=== PATIENT | female | born 2005 | race Caucasian/White ===

== ENCOUNTER 2025-09-05 21:15 | Emergency (ER) | payer BC, SELFPAY ==
[2025-09-05 21:21] VITALS: BP 116/77; PULSE 96; RESP 16; TEMP 36.8; O2SAT 97; BMI 22.3
--- OUTSIDE RECORDS SUMMARY | 2025-09-05 21:26 | XMS_ITS | Clinical Summary ---
Author Organization [facility] Address [address] Attn: [place] [address] Care Team Providers Care Home Therapy Teacher Name Role Phone Brea Marshall MD Primary Care Provider Unav ailable Allergies Active Allergy Reactions Criticality Noted Date Comments Canine Protein Containing Products Cough Low 0 02/15/2008 Cat Hair Extract Cough Low 02/15/2008 Medications fluconazole (DIFLUCAN) 200 mg tablet Take 1 Tablet (200 mg) by mouth daily. 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 02/23/2025 Sore throat 02/23/2025 Vaginal discharge 02/23/2025 Vaginal odor 10/26/2024 Bacterial vaginosis 10/26/2024 Exposure to STD 08/05/2024 Encounters Date Type Department Care Team Description 08/26/2025 External Device Data [facility]STRA[facility] Provider, Abstract 08/19/2025 External Device Data [facility] Provider, Abstract 08/12/2025 External Device Data [facility] Provider, Abstract 07/23/2025 11:00 AM CDT - 07/23/2025 11:59 PM CDT [facility] [address] [place] [address] Abigail Alfonso PA Discharge Disposition: Home or Self Care 07/15/2025 External Device Data [facility] ABSTRACTION Provider, Abstract 07/15/2025 External Device Data [facility] Provider, Abstract 07/15/2025 External Device Data [facility] Provider, Abstract 07/14/2025 11:30 AM CDT - 07/14/2025 11:59 PM CDT Hospital Encounter [facility] [address] [place] [address] Abigail Alfonso PA Discharge Disposition: Home or Self Care 07/07/2025 10:00 AM CDT - 07/07/2025 11:59 PM CDT Hospital Encounter [facility] [address] [place] [address] Abigail Alfonso PA Discharge Disposition: Home or Self Care 07/02/2025 11:30 AM CDT - 07/02/2025 11:59 PM CDT Hospital Encounter [facility] [address] [place] [address] Abigail Alfonso PA Discharge Disposition: Home or Self Care 06/23/2025 11:30 AM CDT - 06/23/2025 11:59 PM CDT Hospital Encounter [facility] [address] [place] [address] Abigail Alfonso PA Discharge Disposition: Home or Self Care 06/19/2025 10:00 AM CDT - 06/19/2025 11:59 PM CDT Hospital Encounter [facility] [address] [place] [address] Abigail Alfonso PA Discharge Disposition: Home or Self Care 06/17/2025 10:15 AM CDT Office Visit [facility] [address] [place] [address] Alexandre Roche III, MD Left knee pain, unspecified chronicity (Primary Dx); Knee instability, left 06/17/2025 External Device Data [facility] ABSTRACTION Provider, Abstract 06/17/2025 External Device Data [facility] Provider, Abstract 06/17/2025 External Device Data [facility] Provider, Abstract 06/12/[address] [facility] [address] [place] [address] Abigail Alfonso PA Question 06/11/2025 10:00 AM CDT - 06/11/2025 11:59 PM CDT Hospital Encounter [facility] [address] [place] [address] Abigail Alfonso PA Discharge Disposition: Home or Self Care 06/09/2025 10:00 AM CDT - 06/09/2025 11:59 PM CDT Hospital Encounter [facility] [address] [place] [address] Abigail Alfonso PA Discharge Disposition: Home or Self Care 06/05/2025 10:30 AM CDT - 06/05/2025 11:59 PM CDT Hospital Encounter [facility] [address] [place] [address] Abigail Alfonso PA Discharge Disposition: Home or Self Care from Last 3 Months Immunizations Immunization Administration Dates Next Due (M-M-R II/PRIORIX)(12 MO UP) MEASLES, MUMPS AND RUBELLA VIRUS VACCINE, 0.5 ML IM/SUBCUT 07/01/2005 (VARIVAX)(12 MOS UP)VARICELL A VIRUS VACCINE (PF) 0.5 ML, SUB CUT 02/14/2006 DTaP IPV Vaccine 4-6 Yr IM VFC 02/27/2009 Dt Dtp Dtap Vaccine 07/01/2005, 4,2004,2003 HIB, Unspecified Formulation 07/01/2005, 2004,2004,2003 Hepatitis A Vaccine 02/12/2007,02/14/2006 Hepatitis B Vaccine 2004, 4,2004,2003 IPV/OPV 2004,2004,2004 MMR Vaccine SQ VFC 02/27/2009 Pneumococcal 7-valent conjug ate vaccine IM 07/01/2005,2004,2004,2003 Varicella Vaccine Live Sq VF 02/27/2009 Family History Medical History Relation Name Comments Healthy Father DON DINH Healthy Mother MARVA Relation Name Status Comments Father DON DINH Alive Mother MARVA Alive Social History Tobacco Use Types Packs/Day Years Used Date Smoking Tobacco: Never Smokeless Tobacco: Never Tobacco Cessation:Counseling Given: Not Answered Feeling Safe Answer Date Recorded Are you in a relationship wi th someone who hurts you emotionally and/or physically? 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 Gender Identity Not on file Sexual Orientation Not on file Last Filed Vital Signs Vital Sign Reading Time Taken Comments Blood Pressure 118/76 06/17/2025 10:45 AM CDT Pulse 118 05/18/2025 4:00 PM CDT Temperature 37.3 C (99.1 F) 05/18/2025 3:42 PM CDT Respiratory Rate 18 05/18/2025 3:42 PM CDT Oxygen Saturation 97% 05/18/2025 3:42 PM CDT Inhaled Oxygen Concentration - - Weight 60.3 kg (133 lb) 06/17/2025 10:45 AM CDT Height 162.6 cm (5' 4 ) 06/17/2025 10:45 AM CDT Body Mass Index 22.83 06/17/2025 10:45 AM CDT Plan of Treatment Health Maintenance Due Date Last Done Comments DTAP/TDAP/TD VACCINES (6 - Tdap) 02/09/2015 02/27/2009, 07/01/2005, 2004, Additional history exists HPV VACCINES (1 - 3-dose series) 02/09/2019 CERVICAL CANCER SCREENING 02/09/2025 HPV/Cotest (21-29) 02/09/2025 PAP SMEAR 02/09/2025 INFLUENZA VACCINE (#1) 2025 CHLAMYDIA SCREENING (ANNUAL) 11-24 YEARS 02/23/2026 02/23/2025, 10/26/2024, 08/02/2024 HEPATITIS B VACCINES Completed 2004, 2004, 2004, Additional history exists Procedures Procedure Name Priority Date/Time Associated Diagnosis Comments VAGINOSIS/VAGINITIS PANEL PLUS Stat 02/23/2025 12:58 PM CDT Vaginal discharge from Last 3 Months or Most Recently Relevant to Health Maintenance Results * VAGINOSIS/VAGINITIS PANEL PLUS (02/23/2025 12:58 PM CDT) BACTERIAL VAGINOSIS NEGATIVE NEGATIVE [facility] NURIA SPECIES NOT DETECTED NOT DETECTED [facility] NURIA GLABRATA NOT DETECTED NOT DETECTED [facility] Comment: Nuria species C. albicans, C. tropicalis, C. parapsilosis, and/or C. dubliniensis can be detected, but not differentiated, in the Nuria spp. result. TRICHOMONAS VAGINALIS (TV), TMA NOT DETECTED NOT DETECTED [facility] CHLAMYDIA TRACHOMATIS RNA, TMA, UROGENITAL NOT DETECTED NOT DETECTED [facility] NEISSERIA GONORRHOEAE RNA, TMA, UROGENITAL NOT DETECTED NOT DETECTED [facility] Comment: For additional information, please refer to https://education.MindEdge/faq/NER614 (This link is being provided for information/ educational purposes only.) Test Performed at: [facility] [id number] [facility] [place] [facility], [place] [address] Makayla Garzon MD Genital SPECIMEN FROM VAGINA / Unknown 02/23/2025 12:58 PM CDT 02/24/2025 1:00 AM CDT Yanet GARCIA MICROBIOLOGY - GENERAL [place] Final Result [facility] [phone] [facility] [address] [facility] [address] from Last 3 Months or Most Recently Relevant to Health Maintenance Insurance BCBS BLUE ACCESS/TRUE BLUE PPO [employer] Care Teams Home Therapy Teacher Relationship Specialty Start Date End Date Brea Marshall MD NO ADDRESS ON FILE PCP - General 10/22/07
--- OUTSIDE RECORDS SUMMARY | 2025-09-05 21:26 | XMS_ITS | Encounter Summary ---
Author Organization [facility] Address [address] [place] [address] Care Team Providers Care Convex Grinder Operator Name Role Phone Brea Marshall MD Primary Care Provider Unav ailable Encounter Details Date Type Department Care Team (Late st Contact Info) Description 02/23/2025 Lab Requisition [facility] [address] [place] [place] [address] Yanet Abbott, DISPATCHER MAINTENANCE [address] [place] [address] Acute pharyngitis, unspecified Social History Tobacco Use Types Packs/Day Years Used Date Smoking Tobacco: Never Assessed Comments No Sex and Gender Information Value Date Recorded Sex Assigned at Not on file 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 Gender Identity Not on file Sexual Orientation Not on file documented as of this encounter Plan of Treatment Not on file documented as of this encounter Procedures Procedure Name Priority Date/Time Associated Diagnosis Comments CBC WITH DIFFERENTIAL Stat 02/23/2025 1:01 PM CDT Acute pharyngitis, unspecified COMPREHENSIVE METABOLIC PANEL Stat 02/23/2025 1:01 PM CDT Acute pharyngitis, unspecified documented in this encounter Results * (ABNORMAL) CBC WITH DIFFERENTIAL (02/23/2025 1:01 PM CDT) WBC 8.4 4.5 - 11.0 K/uL 02/23/2025 1:58 PM [facility] RBC 4.61 4.20 - 5.40 M/uL 02/23/2025 1:58 PM [facility] HEMOGLOBIN 14.3 12.0 - 16.0 g/dL 02/23/2025 1:58 PM [facility] HEMATOCRIT 42.4 36.0 - 46.0 % 02/23/2025 1:58 PM [facility] MCV 92.0 84.0 - 103.0 fL 02/23/2025 1:58 PM [facility] MCH 31.0 27.0 - 34.0 pg 02/23/2025 1:58 PM [facility] MCHC 33.7 30.0 - 35.0 g/dL 02/23/2025 1:58 PM [facility] PLATELETS 333 140 - 440 K/uL 02/23/2025 1:58 PM [facility] MPV 9.4 8.9 - 12.8 fL 02/23/2025 1:58 PM [facility] RDW 12.8 11.0 - 14.5 % 02/23/2025 1:58 PM [facility] RDW-STDEV 43.0 37.0 - 54.0 fL 02/23/2025 1:58 PM [facility] NEUTROPHILS 78(H) 42 - 75 % 02/23/2025 1:58 PM [facility] LYMPHOCYTES 15(L) 24 - 44 % 02/23/2025 1:58 PM [facility] MONOCYTES 6 2 - 10 % 02/23/2025 1:58 PM [facility] EOSINOPHILS 0 0 - 7 % 02/23/2025 1:58 PM [facility] BASOPHILS 1 0 - 1 % 02/23/2025 1:58 PM [facility] IMMATURE GRANULOCYTES 0 0 - 2 % 02/23/2025 1:58 PM CDT [facility] NEUTROPHIL ABSOLUTE 6.53 2.00 - 8.00 K/uL 02/23/2025 1:58 PM CDT [facility] LYMPHOCYTE ABSOLUTE 1.24 1.20 - 4.00 K/uL 02/23/2025 1:58 PM CDT [facility] MONOCYTE ABSOLUTE 0.54 0.10 - 0.60 K/uL 02/23/2025 1:58 PM CDT [facility] EOSINOPHIL ABSOLUTE 0.01 0.00 - 0.70 K/uL 02/23/2025 1:58 PM CDT [facility] BASOPHILS ABSOLUTE 0.04 0.00 - 0.20 K/uL 02/23/2025 1:58 PM CDT [facility] IMMATURE GRANULOCYTES ABSOLUTE 0.03 0.00 - 0.10 K/uL 02/23/2025 1:58 PM CDT [facility] SMEAR REVIEWED: NA - Not Applicable 02/23/2025 1:58 PM CDT [facility] Blood Collection / Unknown 02/23/2025 1:01 PM CDT 02/23/2025 1:55 PM CDT Yanet Abbott DISPATCHER MAINTENANCE HEMATOLOGY ORDERABLES Final Result [facility] CLIA # [id number] [address] [place] [address] [id number] * (ABNORMAL) COMPREHENSIVE METABOLIC PANEL (02/23/2025 1:01 PM CDT) SODIUM 140 136 - 145 mmol/L 02/23/2025 2:24 PM CDT [facility] POTASSIUM 3.6 3.5 - 5.1 mmol/L 02/23/2025 2:24 PM CDT [facility] CHLORIDE 106 98 - 107 mmol/L 02/23/2025 2:24 PM CDT [facility] CO2 20(L) 22 - 29 mmol/L 02/23/2025 2:24 PM [facility] CALCIUM 9.2 8.6 - 10.0 mg/dL 02/23/2025 2:24 PM [facility] BUN 9 6 - 20 mg/dL 02/23/2025 2:24 PM [facility] CREATININE 0.70 0.51 - 0.95 mg/dL 02/23/2025 2:24 PM [facility] GLUCOSE 108(H) 74 - 99 mg/dL 02/23/2025 2:24 PM [facility] TOTAL PROTEIN 7.4 6.4 - 8.3 g/dL 02/23/2025 2:24 PM [facility] ALBUMIN 4.5 3.5 - 5.2 g/dL 02/23/2025 2:24 PM [facility] BILIRUBIN TOTAL 0.4 0.0 - 1.0 mg/dL 02/23/2025 2:24 PM [facility] ALKALINE PHOSPHATASE 64 35 - 104 U/L 02/23/2025 2:24 PM [facility] AST 14 10 - 35 U/L 02/23/2025 2:24 PM [facility] ALT 10 <=35 U/L 02/23/2025 2:24 PM [facility] GFR >60 >=60 mL/min/1.7 3 sq meter 02/23/2025 2:24 PM [facility] Comment:eGFR calculated with 2020 CKD-EPI equation. Vegetarian diet, extremely high or low muscle mass, and may affect results. Cystatin C with Glomerular Filtration Rate is a suitable alternative for these patients. ANION GAP 14 9 - 20 mmol/L 02/23/2025 2:24 PM [facility] Blood Collection / Unknown 02/23/2025 1:01 PM CDT 02/23/2025 1:52 PM CDT Yanet Abbott DISPATCHER MAINTENANCE CHEMISTRY ORDERABLES Final Result [facility] # [id number] [address] [address] [place] [address] documented in this encounter Visit Diagnoses Diagnosis Acute pharyngitis, unspecified documented in this encounter Care Teams Convex Grinder Operator Relationship Specialty Start Date End Date Brea Marshall MD NO ADDRESS ON FILE PCP - General 10/22/07 documented as of this encounter
--- NOTE | 2025-09-05 23:15 | W.ED.ABDPA2 ---
HPI - Abdominal Pain General: Chief Complaint: Abdominal Pain Stated Complaint: Low back pain,abd pain, Low BP Time Seen by Provider: 09/05/25 22:51 History of Present Illness: Patient is a 20-year-old female without medical history, that presents to the emergency room after flank pain bilateral, x 1 month, worsening today. Context: Patient is from [facility], and is down here because her grandfather is actively dying on hospice, arrived just before 10 PM, and had worsening pain to bilateral flank, without dysuria, oliguria, polyuria, and green stools. Unsure if this has something to do with what she has eaten. No family or personal history of renal colic. She had nausea and vomiting tonight. Her pain is described as bilateral flank. This is vibratory in nature. She feels better with her legs up on her side. Associated Symptoms: Reports change in stool character, nausea and vomiting; Denies chills, dysuria and fever(s) Related Data Previous Rx's ?Medication ?Instructions ?Recorded ondansetron 4 mg disintegrating 4 mg PO Q8H PRN nausea and 09/06/25 tablet vomiting 4 days #14 tabs Allergies Allergy/AdvReac Type Severity Reaction Status Date / Time No Known Allergies Allergy Verified 09/05/25 21:28 Review of Systems General: Reports: 10 or more systems reviewed and unremarkable except in HPI and below Const: Denies: fever(s) or chills Eyes: Denies: change in vision or blurry vision ENMT: Denies: throat pain, nasal congestion or epistaxis Card: Denies: chest pain or palpitations Resp: Denies: dyspnea or non-productive cough GI: Reports: abdominal pain, nausea, vomiting and change in stool character : Reports: flank pain; Denies: difficulty voiding, dysuria, urinary frequency or urinary urgency Musc: Denies: neck pain or back pain Skin/Breast: Denies: rash or pruritus Neuro: Denies: headache(s) or numbness in extremities Psych: Denies: anxiety or depression Endo: Denies: polyuria or polydipsia Physical Exam Const: COMMON NORMALS: no acute distress, average body habitus and patient oriented x3 HENMT: COMMON NORMALS: normocephalic and atraumatic HEAD & SCALP: normocephalic and atraumatic Neck/C-Spine: COMMON NORMALS: full ROM, no lymphadenopathy, supple and no meningeal signs Lymph: LYMPHATIC: no lymphadenopathy noted Chest: COMMONS NORMALS: normal inspection of the chest and normal palpation of entire chest wall Resp: COMMON NORMALS: normal respiratory effort, No retractions and No use of accessory muscles Cardio: COMMON NORMALS: regular rate and regular rhythm RATE: regular rate RHYTHM: regular rhythm GI: COMMON NORMALS: Normal to inspection, nondistended, normoactive bowel sounds present, Soft to palpation and non-tender (Patient c/o right suprapubic pain after exam without grimace) PALPATION: Yes Soft to palpation Neuro: COMMON NORMALS: patient oriented x3 MENINGEAL SIGNS: Yes no meningeal signs Psych: COMMON NORMALS: mental status grossly normal, Normal thought process present and cooperative THOUGHT PROCESS: Normal thought process present Course Vital Signs: Vital signs: Vital Signs Temperature 98.2 F 09/05/25 21:21 Pulse Rate 101 H 09/05/25 23:27 Respiratory Rate 16 09/05/25 21:21 Blood Pressure 122/68 09/05/25 23:27 Pulse Oximetry 98 09/05/25 23:27 Oxygen Delivery Me thod Room Air 09/05/25 21:21 MDM - Abdominal Pain Medical Decision Making Patient is a 20-year-old female that presented to the emergency room with pain in her bilateral flank, and noting tenderness to right suprapubic area after examination. She did not have any grimacing with examination. She did have significant symptoms of nausea, and vomiting prior to arrival. She has circumstances of her grandfather actively dying as well. This was worsening however today. No history of renal colic. Differentials include ureterolithiasis, changes in stool indicating gastroenteritis versus colitis, however mother would like her worked up for cholecystitis. Given her nausea, and vomiting this is fair. Will add a lipase to her labs, and already discussed giving p.o. Zofran. Mother/patient are acceptable to this. Patient does not have primary care, however lives in [place] full-time, and therefore will not make case management consult. Medical Records I reviewed the patient's medical records. Lab Data I reviewed the patient's lab results. 09/05/25 23:24 09/05/25 23:24 Labs/Radiology: Radiology Impressions Abdomen X-Ray 09/05/25 23:38 IMPRESSION: Dilated small bowel measures up to 3.1 cm, concerning for bowel obstruction. Abdomen/Pelvis CT 09/06/25 00:08 IMPRESSION: 1. Mild fluid-filled small bowel, with mild wall thickening, concerning for enteritis. 2. No bowel obstruction. No free air. Laboratory Results WBC 11.90 10^3/uL (3.29-11.43) H 09/05/25 23:24 RBC 4.55 10^6/uL (3.85-5.65) 09/05/25 23:24 Hgb 14.10 g/dL (11.27-16.99) 09/05/25 23:24 Hct 41.8 % (36-47) 09/05/25 23:24 MCV 91.9 fl (85-98) 09/05/25 23:24 MCH 31.0 pg (27-33) 09/05/25 23:24 MCHC 33.7 g/dL (30-55) 09/05/25 23:24 RDW 11.6 % (12.1-15.1) L 09/05/25 23:24 Plt Count 266 10^3/cmm (157-399) 09/05/25 23:24 MPV 9.5 fL (7.4-10.4) 09/05/25 23:24 Neut % (Auto) 86.7 % 09/05/25 23:24 Lymph % (Auto) 7.6 % 09/05/25 23:24 [place] % (Auto) 4.6 % 09/05/25 23:24 Eos % (Auto) 0.5 % 09/05/25 23: Baso % (Auto) 0.3 % 09/05/25 23:24 Neut # (Auto) 10.33 10^3/uL (1.8-7.7) H 09/05/25 23:24 Lymph # (Auto) 0.9 10^3/uL (0.8-4.8) 09/05/25 23: [place] # (Auto) 0.6 10^3/uL (0.2-0.9) 09/05/25 23:24 Eos # (Auto) 0.1 10^3/uL (0.0-0.8) 09/05/25 23: Baso # (Auto) 0.0 10^3/uL (0.0-0.1) 09/05/25 23:24 Nucleated RBC % (auto) 0 % 09/05/25 23:24 Nucleated RBCs # 0.0 /100WBC 09/05/25 23:24 Sodium 138 mmol/L (136-145) 09/05/25 23:24 Potassium 4.0 mmol/L (3.5-5.1) 09/05/25 23:24 Chloride 103 mmol/L (98-107) 09/05/25 23:24 Carbon Dioxide 24 mmol/L (22-29) 09/05/25 23:24 Anion Gap 15.0 (5-19) 09/05/25 23:24 BUN 12 mg/dL (6-20) 09/05/25 23:24 Creatinine 0.6 mg/dL (0.5-0.9) 09/05/25 23:24 GFR Calculation 126.2 mL/min (90-130) 09/05/25 23:24 Glucose 102 mg/dL (65-115) 09/05/25 23:24 Calculated Osmolality 286 mOsm/kg (285-295) 09/05/25 23:24 Calcium 9.2 mg/dL (8.5-10.5) 09/05/25 23:24 Total Bilirubin 1.1 mg/dL (0.15-1.2) 09/05/25 23:24 AST 12 U/L (0-32) 09/05/25 23:24 ALT 8 U/L (0-33) 09/05/25 23:24 Alkaline Phosphatase 48 U/L (35-105) 09/05/25 23:24 Total Protein 7.2 g/dL (6.6-8.7) 09/05/25 23:24 Albumin 4.4 g/dL (3.5-5.2) 09/05/25 23:24 Globulin 2.8 g/dL (1.3-4.6) 09/05/25 23:24 Lipase 14 U/L (13-60) 09/05/25 23:24 HCG, Qual Negative (Negative) 09/05/25 23:15 Urine Color Yellow (Yellow) 09/05/25 23:15 Urine Appearance Clear (CLEAR) 09/05/25 23:15 Urine pH 5.0 (5-7) 09/05/25 23:15 Ur Specific [place] 1.009 (1.005-1.030) 09/05/25 23:15 Urine Protein Negative (Negative) 09/05/25 23:15 Urine Glucose (UA) Negative (Normal) 09/05/25 23:15 Urine Ketones 1+ (Negative) H 09/05/25 23:15 Urine Blood Negative (Negative) 09/05/25 23:15 Urine Nitrate Negative (Negative) 09/05/25 23:15 Urine Bilirubin Negative (Negative) 09/05/25 23:15 Urine Urobilinogen 0.2 mg/dL (Negative) 09/05/25 23:15 Ur Leukocyte Esterase Negative (Negative) 09/05/25 23:15 Urine RBC 0-2 /hpf (0-2) 09/05/25 23:15 Urine WBC 0-5 /hpf (0-5) 09/05/25 23:15 Ur Squamous Epith Cells 0-5 /hpf (0-5) 09/05/25 23:15 Amorphous Sediment Not Reportable 09/05/25 23:15 Urine Bacteria None seen /hpf (NONE) 09/05/25 23:15 Hyaline Casts 0-4 /lpf H 09/05/25 23:15 All radiology interpretation(s) finalized by discharge ED provider radiology interpretation(s): Nonspecific changes/concern for small bowel obstruction on first abdominal x-ray. Discharge Plan Discharge Patient Disposition: Home Clinical Impression: Enteritis Condition: Stable Prescriptions: New ondansetron 4 mg tablet,disintegrating 4 mg PO Q8H PRN (Reason: nausea and vomiting) 4 Days Qty: 14 0RF Discharge Orders: Discharge ED (Routine); Ordered 09/06/25 Ordered By: Sofya Hughes Referrals: Brea Marshall [Primary Care Provider, Pediatrics] Discharge Diet: Clear Liquid Patient Instructions: Clear Liquid Diet (ED), Abdominal Pain (ED), Patient Portal & Sunil Instructions Activity Restrictions/Additional Instructions: - Things we discussed: Your official diagnosis per CT is enteritis. Tylenol and ibuprofen for pain. Follow stool counts. Drink clear liquids as noted below until all the symptoms resolved. Chronic abdominal pain, that is worse acutely, can still be associated with cholecystitis, however this is a chronic cholecystitis, and will have to be further worked up on an outpatient basis. (There is a special test they do outpatient that we are not allowed to order in an emergency room) if this changes acutely, as it did today, return to this ER or another ER to further have this investigated. Until all of your pain has resolved, you will need to stay on a clear liquid diet. Information has been given to you. Egg drop soup, broth, Jell-O's, and even Coca-Cola, coffee without creamer, are on the list of things you can have. - Your laboratory data: Urine analysis is benign. Your white blood cell count is marginally elevated at only 0.5 higher than the top level at 11.9. - Called into your pharmacy: Zofran. This is a nausea medication. Also called ondansetron. Side effects include constipation. - Your change in stool: A stool culture can be done on an outpatient basis to further discern what is going on with your used to, green stool. Remember that some items you drink and eat can cause your stool to be green. If this persist, you can come to the ED, however without a stool sample while you are in the ED, will need to be further worked up with your primary care. Thank you for choosing [facility] for your healthcare needs today. You have been screened and evaluated and felt safe for discharge. Health conditions do change or evolve sometimes and as such it is important that you follow up with your Primary Doctor to be re checked, 3-5 days is a general good time frame for follow up. You are always welcome to return to the ED for re assessment if your symptoms are worsening or you have new concerns Stand Alone Forms: Work/School Release Print Language: Macedonian Coding Level of Care Code ED Machine Maintenance Servicer for Clint Banks
[2025-09-05] MEDS: ondansetron hcl ODT 4 mg Tab PO (23:24)
[2025-09-05 23:27] VITALS: BP 122/68; PULSE 101; O2SAT 98
[2025-09-05 23:29] LABS: Hematocrit 41.8 % (36-47); Hemoglobin 14.10 g/dL (11.27-16.99); Mean Corpuscular HGB Conc 33.7 g/dL (30-55); Mean Corpuscular Hemoglobin 31.0 pg (27-33); Mean Corpuscular Volume 91.9 fl (85-98); Nucleated Red Blood Cells % 0 %; Platelet Count 266 10^3/cmm (157-399); Red Blood Count 4.55 10^6/uL (3.85-5.65); White Blood Count 11.90 10^3/uL (3.29-11.43)
[2025-09-05 23:30] LABS: Glucose Urine UA Negative (Normal); Nitrate Urine Negative (Negative); Specific Gravity, Urine 1.009 (1.005-1.030)
[2025-09-05 23:36] LABS: Add Urine Microscopic? YES
--- NOTE | 2025-09-05 23:38 | XRR_ITS ---
PROCEDURE INFORMATION: Exam: XR Abdomen Exam date and time: 09/05/2025 11:56 PM Age: 20 years old Clinical indication: Abdominal pain; Generalized; Diffuse abd pain TECHNIQUE: Imaging protocol: Radiologic exam of the abdomen. Views: 2 Views. Upright and supine views. COMPARISON: No relevant prior studies available. FINDINGS: Gastrointestinal tract: Dilated small bowel measures up to 3.1 cm, concerning for bowel obstruction. Intraperitoneal space: Normal. No free air. Bones/joints: Unremarkable for age. XR/XR abdomen min 2V [id number] IMPRESSION: Dilated small bowel measures up to 3.1 cm, concerning for bowel obstruction.
[2025-09-05 23:46] LABS: Alanine Aminotransferase 8 U/L (0-33); Albumin Level 4.4 g/dL (3.5-5.2); Alkaline Phosphatase 48 U/L (35-105); Anion Gap 15.0 (5-19); Aspartate Amino Transferase 12 U/L (0-32); Blood Urea Nitrogen 12 mg/dL (6-20); Calcium 9.2 mg/dL (8.5-10.5); Carbon Dioxide 24 mmol/L (22-29); Chloride 103 mmol/L (98-107); Globulin 2.8 g/dL (1.3-4.6); Glucose 102 mg/dL (65-115); Lipase 14 U/L (13-60); Osmolality Calculated 286 mOsm/kg (285-295); Potassium 4.0 mmol/L (3.5-5.1); Sodium 138 mmol/L (136-145); Total Protein 7.2 g/dL (6.6-8.7)
[2025-09-05 23:49] LABS: HCG Qualitative Urine. Negative (Negative)
--- NOTE | 2025-09-06 00:08 | CTR_ITS ---
PROCEDURE INFORMATION: Exam: CT Abdomen And Pelvis With Contrast Exam date and time: 09/06/2025 12:33 AM Age: 20 years old Clinical indication: Pain and abnormal findings; Abnormal radiologic finding of the abdomen; Radiologic exam and body structure: Kub; Abdominal pain; Generalized; C/O diffuse abd pain. Dilated small bowel loops noted in luq. ; Additional info: Prominent psoas, nonspecific changes on 2 view, abdominal pa TECHNIQUE: Imaging protocol: Computed tomography of the abdomen and pelvis with contrast. Radiation optimization: All CT scans at this facility use at least one of these dose optimization techniques: automated exposure control; mA and/or kV adjustment per patient size (includes targeted exams where dose is matched to clinical indication); or iterative reconstruction. Contrast material: OMNI 350; Contrast volume: 100 ml; Contrast route: INTRAVENOUS (IV); COMPARISON: CR (ABDOMEN, ) 09/05/2025 11:56 PM RADIATION DOSE METRICS: Total DLP (mGy-cm): 380.93 FINDINGS: Liver: Normal. No mass. Gallbladder and biliary ducts: Normal. No calcified stones. No ductal dilation. Pancreas: Normal. No ductal dilation. Spleen: Normal. No splenomegaly. Adrenal glands: Normal. No mass. Kidneys and ureters: Normal. No hydronephrosis. Stomach and bowel: Mild fluid-filled small bowel, with mild wall thickening, concerning for enteritis. No bowel obstruction. No free air. Appendix: No evidence of appendicitis. Intraperitoneal space: See Stomach and bowel finding. Vasculature: Unremarkable. No abdominal aortic aneurysm. Lymph nodes: Unremarkable. No enlarged lymph nodes. Urinary bladder: Unremarkable as visualized. Reproductive: Unremarkable as visualized. Bones/joints: Unremarkable. No acute fracture. Soft tissues: Unremarkable. CT/CT abdomen pelvis w con* [id number] IMPRESSION: 1. Mild fluid-filled small bowel, with mild wall thickening, concerning for enteritis. 2. No bowel obstruction. No free air.
[2025-09-06] MEDS: iohexol 350 mg/mL 500 mL Btl (per mL) IV (00:33)
[2025-09-06] MEDS: orphenadrine 30 mg/mL Inj 2 mL IVP (01:09)
[2025-09-06 01:39] VITALS: BP 128/74; PULSE 84; O2SAT 98
== END 2025-09-06 01:47 | disposition home or self-care (01) ==
PROVIDERS: Emergency Provider Physician Assistant; Family Provider Pediatrics; PCP Pediatrics
DX: K52.9 Noninfective gastroenteritis and colitis, unspecified (principal)
CPT/HCPCS: 36415; 74019; 74177; 80053; 81001; 81025; 83690; 85025; 96361; 96374; 96375; 99285; J1885; J2360; J7120; Q0162